=== PATIENT | male | born 2000 | race Hispanic/Latino ===

== ENCOUNTER 2024-07-10 07:44 | Emergency (ER) | payer BC, SELFPAY ==
--- NOTE | ~2024-07-10 | XR_ITS ---
XR chest 1V portable Ordering provider: Charlette Wilson MD History: 23 years Male with . anxiety . Comparison: None. FINDINGS: MEDIASTINUM: The cardiac silhouette is not enlarged. LUNGS: No infiltrates, effusions or pneumothorax. OTHER: No free air under the diaphragm. IMPRESSION: No acute cardiopulmonary pathology. Reviewed, dictated and finalized at location A. L CUSTODIAN
[2024-07-10 07:44] VITALS: BP 128/82; PULSE 82; RESP 23; TEMP 36.7; O2SAT 96
--- NOTE | 2024-07-10 08:34 | ED.ANXIETY ---
HPI - Anxiety General Chief Complaint: Anxiety Stated Complaint: anxiety Time Seen by Provider: 07/10/24 08:08 Source: patient, family and RN notes reviewed Mode of arrival: EMS Limitations: no limitations History of Present Illness HPI narrative: Patient presents with report of anxiety attacks. He states he has a history of anxiety that was diagnosed in 2018 for which he undergoes therapy continuing now weekly. He had previously been on medication for this but then this was eventually discontinued under the advisement of his counselor. Starting recently however, he began to experience these episodes again. He attributes these to increased stressors regarding home life/a relationship. He does not have a primary care physician. 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 He denies any edema, fever, chills. He denies any chest pain with that but he does find that he will sometimes grab his chest when these episodes, 1. No palpitations. He denies any pain. He states he when the episode, he will close his eyes. EMS found him like this and did perform sternal rub given he was otherwise not use putting too alternative stimuli. Denies any suicidal ideation or homicidal ideation. He will occasionally become short of breath with his episodes of anxiety. Denies any auditory or visual hallucinations. Denies alcohol or drugs. Denies any falls or loss of consciousness. States there are not vision changes during the episodes and he does not know if he feels a sense of impending doom. The episodes can last 40-50 minutes. He states he finds he spaces out and his breathing increases, like he is hyperventilating. 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 HEAD: Normocephalic, atraumatic. EYES: Non injected, non icteric ENT: Nares clear, no rhinorrhea or epistaxis. NECK: Supple. CHEST: Speaking in full sentences. No respiratory distress. HEART: Regular rate and rhythm. . ABDOMEN: Soft, nondistended. EXTREMITIES: Normal range of motion. No lower extremity edema. SKIN: Warm, dry, no rash. NEURO: No focal deficits. Alert and oriented x3. PSYCH: Normal mood and affect. Appearance: Well kempt. Behavior: Calm, good eye contact, in no acute distress. Mood is congruent with affect. Speech: Appropriate rate, quantity and volume. Thought process: Linear. Denies SI/HI. Denies Auditory/visual hallucinations. Does not appear to be responding to internal stimuli Course Vital Signs Vital signs: Vital Signs Temperature 98.1 F 07/10/24 07:44 Pulse Rate 82 07/10/24 07:44 Respiratory Rate 23 H 07/10/24 07:44 Blood Pressure 128/82 07/10/24 07:44 Pulse Oximetry 96 07/10/24 07:44 Temperature 98.1 F 07/10/24 07:44 Pulse Rate 78 07/10/24 10:57 Respiratory Rate 15 07/10/24 10:57 Blood Pressure 135/89 07/10/24 10:57 Pulse Oximetry 99 07/10/24 10:57 MDM - Anxiety MDM Narrative Medical decision making narrative: Patient presents after report of an anxiety attack while at work. He states this is the 3rd that has happened recently. He was diagnosed with anxiety in 2018 and previously on medications however this was eventually discontinued and with the advisement of his counselor/therapist. He continues with talk therapy even now, weekly, but does state that there have been life stressors/home life stressors/relationship issues recently. In the emergency department he is afebrile with vital signs notable for tachypnea. Normal heart rate and saturating appropriately. JOHNNA-7 is 4 points (feeling nervous, anxious, or on edge for several days; not being able to stop or control or for several days; more into much about different things for several days; feeling afraid as if something awful might happen for several days) and these symptoms have made it Very difficult to do work, take care of things at home, or get along with other people. A score of 4 does not necessarily support anxiety disorder. However, patient is given a small dose of an anxiolytic in the emergency department and prescribed a short course of the same. He already appears to be connected with mental health resources and this will allow him time to follow up with them. [place] prescription monitoring database is reviewed which shows cyclobenzaprine was filled at 1 point but no other controlled substance medications. I did advise the also follow-up with primary care physician and because he does not have 1 he was given the name of a referral. Differential Diagnosis Differential diagnosis: Likely hyperventilation, panic disorder and acute anxiety Imaging Data Radiologist's impression: Impressions Chest X-Ray 07/10/24 09:39 IMPRESSION: No acute cardiopulmonary pathology. ECG Data EKG #1: Attestation: I personally reviewed and interpreted this ECG as follows: ECG completion date: 07/10/24 ECG completion time: 08:48 Interpretation: Normal sinus rhythm at a rate of 71 beats per minute. MS interval 168. QRS 101. Good R-wave progression across the precordial leads. T-wave inversion in lead 3 but upright in normal in contiguous inferior leads 2 and AVF and no other T-wave inversions in precordial leads V2 through V6. Discharge Plan Discharge Clinical Impression: Hyperventilation, Anxiety Patient Disposition: Home, Self-Care Condition: Stable Instructions: Antibiotic Form, Hyperventilation (ED), Anxiety (ED) Additional Instructions: Follow-up with your counselor but I also recommend that you see a primary care physician. Because you do not have 1 the name of the doctors listed below. Return to the emergency department with any new or worsening symptoms. Although not a permanent solution, you are being prescribed a short course of an anti-anxiety medication you can use while you attempt to find a more regular routine/regimen. Patient Language: Chinese Prescriptions: New lorazepam [Ativan] 0.5 mg tablet 0.5 mg PO DAILY PRN (Reason: anxiety) Qty: 5 0RF Follow-up/Referrals: Vineet Spencer MD [Physician] - (Family practice) UNKNOWN,DOCTOR [Primary Care Provider] - Stand Alone Forms: Work/School Release IP Time of Disposition: 10:21
--- NOTE | 2024-07-10 08:35 | ECG_ITS ---
Test Date: 2024-07-10 08:48:20 Measurements Intervals [place] Rate: 71 P: 28 WI: 168 QRS: 15 QRSD: 101 T: 15 QT: 349 QTc: 380 Interpretive Statements SINUS RHYTHM No previous ECG available for comparison Electronically Signed On 07-11-2024 17:31:31 ASSOCIATE ART DIRECTOR by Terra Plunkett M.D.
[2024-07-10 08:53] VITALS: BP 128/78; PULSE 93; RESP 17; O2SAT 100
[2024-07-10] MEDS: LORazepam (*CRX) 0.5 MG TABLET PO (09:12)
[2024-07-10 10:57] VITALS: BP 135/89; PULSE 78; RESP 15; O2SAT 99
== END 2024-07-10 11:02 | disposition home or self-care (01) ==
PROVIDERS: Emergency Provider Student in an Organized Health Care Education/Training Program
DX: R06.4 Hyperventilation (principal); F41.9 Anxiety disorder, unspecified
CPT/HCPCS: 71045; 93005; 99283; A9270

== ENCOUNTER 2024-09-14 10:30 | Outpatient (CLI) | payer BC, SELFPAY ==
--- NOTE | 2024-09-14 10:40 | EST_ITS ---
Patient Info Name: Antwan Marie Age: 23 years : 2000 Gender: Male Ht: 68 in Wt: 209 lbs BSA: 2.16 m2 HR: 77 bpm BP: 133 / 84 mmHg Exam Date: 09/14/2024 11:11 AM Exam Location: [facility] Patient Status: Outpatient Admit Date: 09/14/2024 Staff Ordering Physician: Gianfranco Pruitt DO Attending Provider: Gianfranco Pruitt DO Exercise Technologist: jese pretty Exercise Physician: Gianfranco Pruitt DO Exam Type: CA stress test treadmill Study Info Indications R07.9 - Chest pain, unspecified A treadmill exercise stress test was performed. Summary 1. 1. Negative Lanre exercise stress test for ischemic ST changes by ECG criteria. 2. 2. Good functional capacity, achieving 10 METs of workload. 3. 3. Appropriate HR response to exercise. 4. 4. Appropriate HR recovery at 1 minute post exercise. 5. 5. No imaging with stress testing. 6. 6. Patient informed of the above results. Protocol: Lanre Stress ECG Details Stage: REST Duration (min): 0 min : 19 sec Speed (mph): 0.0 Grade (%): 0 HR (bpm): 71 SBP (mmHg): --- DBP (mmHg): --- METS: --- Stage: REST Duration (min): 0 min : 48 sec Speed (mph): 0.0 Grade (%): 0 HR (bpm): 77 SBP (mmHg): 133 DBP (mmHg): 84 METS: --- Stage: REST Duration (min): 4 min : 3 sec Speed (mph): 0.0 Grade (%): 0 HR (bpm): 106 SBP (mmHg): 133 DBP (mmHg): 84 METS: --- Stage: STAGE 1 Duration (min): 1 min : 0 sec Speed (mph): 1.7 Grade (%): 10 HR (bpm): 113 SBP (mmHg): 133 DBP (mmHg): 84 METS: --- Stage: STAGE 1 Duration (min): 2 min : 0 sec Speed (mph): 1.7 Grade (%): 10 HR (bpm): 119 SBP (mmHg): 133 DBP (mmHg): 84 METS: --- Stage: STAGE 1 Duration (min): 3 min : 0 sec Speed (mph): 1.7 Grade (%): 10 HR (bpm): 122 SBP (mmHg): 166 DBP (mmHg): 74 METS: --- Stage: STAGE 2 Duration (min): 1 min : 0 sec Speed (mph): 2.5 Grade (%): 12 HR (bpm): 138 SBP (mmHg): 166 DBP (mmHg): 74 METS: --- Stage: STAGE 2 Duration (min): 2 min : 0 sec Speed (mph): 2.5 Grade (%): 12 HR (bpm): 140 SBP (mmHg): 165 DBP (mmHg): 74 METS: --- Stage: STAGE 2 Duration (min): 3 min : 0 sec Speed (mph): 2.5 Grade (%): 12 HR (bpm): 142 SBP (mmHg): 165 DBP (mmHg): 74 METS: --- Stage: STAGE 3 Duration (min): 1 min : 0 sec Speed (mph): 3.4 Grade (%): 14 HR (bpm): 161 SBP (mmHg): 155 DBP (mmHg): 75 METS: --- Stage: STAGE 3 Duration (min): 2 min : 0 sec Speed (mph): 3.4 Grade (%): 14 HR (bpm): 164 SBP (mmHg): 155 DBP (mmHg): 75 METS: --- Stage: STAGE 3 Duration (min): 3 min : 0 sec Speed (mph): 3.4 Grade (%): 14 HR (bpm): 168 SBP (mmHg): 163 DBP (mmHg): 75 METS: --- Stage: RECOVERY Duration (min): 0 min : 52 sec Speed (mph): 0.0 Grade (%): 0 HR (bpm): 148 SBP (mmHg): 163 DBP (mmHg): 75 METS: --- Rest HR: 106 bpm Peak HR: 171 bpm Rest Sys BP: 133 mmHg Peak Sys BP: 166 mmHg Max Pred HR: 195 bpm % Max Pred HR: 88 % Target HR: 166 bpm Max RPP: 28,386 bpm*mmHg Meier Score: -7 Termination Reason: Reached target heart rate or workload Cardiac Symptoms: Shortness of breath Max ST Seg Deviation: 3.30 mm Total Time: 9 min : 0 sec Rest [place] BP: 84 mmHg Peak [place] BP: 74 mmHg Angina Score: None Total METS: 10.3 Resting ECG Sinus rhythm. Stress ECG No ST changes. Arrhythmias None. Report Signatures
--- OUTSIDE RECORDS SUMMARY | 2024-09-14 11:16 | XMS_ITS | Continuity of Care Document ---
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 Name Role Phone Vineet Spencer MD Unavailable Unavailable Allergies, Adverse Reactions, Alerts Substance Reaction Status Criticality No Known Allergies Active No Inform ation Medications Medication Instructions Dosage Effective Dates (start - stop) Status Comments buspirone 10 mg tablet take 1 tablet by oral route 2 times every day 10 MG - Active avoid driving or operate machines Lexapro 10 mg tablet take 1 tablet by oral route every day 10 MG - Active Procedures Procedure Date PREV VISIT, NEW, AGE 18-39 OFFICE/OUTPATIENT VISIT, [facility] Advance Directives Directive Yes / No Effective Date File Name No Information Encounters Encounter Description Practice Location Reason(s) For Visit Diagnoses Date Provider Providers Copied on Encounter PREV VISIT, NEW, AGE 18-39 [facility], [address], [place], [id number], [place] tel:[phone] [facility] physical (chief complaint) Encounter for general adult medical exam w abnormal findingsOther chest painSyncope and collapseGeneralized Anxiety Disorder Tj Manley. [address], [place], [id number] , [place]. tel:[phone] Family History Family Member Type Diagnosis Age At Onset Mother Problem Alive and well Father Problem unknown Brother Problem Alive and well Payers Payer name Insurance type Covered libertarian ID Authoriza tion(s) No Information Social History Type Description Quantity Date Captured Comments Alcohol Use Details No Caffeine Use Details Unknown Tobacco Use Status Current non-smoker Smoking Status Never smoker Non-Smoking Tobacco Use Details : No Details Available : No Details Available Sex Male Vital Signs Date / Time: Height Weight BMI Pulse Rate Blood Pressure Temperature Respiratory Rate Body Surface Area Head Circumference BMI percentile Pulse Ox Inhaled Ox 2:31 PM 68.00 in 210.80 lbs 32.0 5 kg/m eter (2) 83 /min 120/80 mm[Hg] 98.4 F 16 /min Chief Complaint And Reason For Visit From encounter dated '07/11/2024 14:19'. physical (chief complaint). Description: Pt needs annual physical pt has chronic anxiety. Pt deniesany depression Pt denies any suicidal or homicidal thought Pt denies any crying spells Pt used to take some medication for anxiety but he has not had any medication since 5-6 years ago Pt has frequent panic attacks due to stress from relationship and work and he feels severe anxiety with chest pain and he starts to hyperventilate which is uncontrollable and he actually passed out two days ago during one of those episode and he had to be transferred to ER via ambulance. EMS had to perform sternal rub in order for him to regain consciousness. Pt was given some ativan PRn from ER which he is scared to take due to addictive nature of above Pt denies any seizure or any current chest pain or anxiety. Pt denies any palpitation Plan Of Treatment Date Type Action Status Referral Referred To: Gianfranco Pruitt [address] [place] [address], [address] [phone] Ordered: Referrals: Gianfranco Pruitt. Evaluate and treat ordered History Of Present Illness Encounter Date Complaint History Of Prese nt Illness physical Pt needs annual physical pt has chronic anxiety. Pt denies any depression Pt denies any suicidal or homicidal thought Pt denies any crying spells Pt used to take some medication for anxiety but he has not had any medication since 5-6 years ago Pt has frequent panic attacks due to stress from relationship and work and he feels severe anxiety with chest pain and he starts to hyperventilate which is uncontrollable and he actually passed out two days ago during one of those episode and he had to be transferred to ER via ambulance. EMS had to perform sternal rub in order for him to regain consciousness. Pt was given some ativan PRn from ER which he is scared to take due to addictive nature of above Pt denies any seizure or any current chest pain or anxiety. Pt denies any palpitation Instructions Date Instruction Additional Infor mation No Information Assessments Type Assessment Date assessment Encounter for general adult medi tyrese exam w abnormal findings assessment Other chest pain assessment Syncope and collapse assessment Generalized Anxiety Disorder Jul Mental Status Date Cognitive Assessment Orientation - [place] ed to time, place, person, situation.
== END 2024-09-14 10:31 | disposition home or self-care (01) ==
PROVIDERS: PCP Emergency Medicine; Visit Provider Internal Medicine Cardiovascular Disease
DX: R07.9 Chest pain, unspecified (principal)
CPT/HCPCS: 93017